=== PATIENT | male | born 1985 | race Caucasian/White ===

== ENCOUNTER 2021-10-05 05:30 | Day surgery (SDC) | payer MEDICAID ==
[2021-09-24 14:35] LABS: BASOPHILS % (AUTO) 0.5 % (0-1); EOSINOPHILS # (AUTO) 0.1 X10'3 (0-0.9); EOSINOPHILS % (AUTO) 0.7 % (0-6); LYMPHOCYTES # (AUTO) 1.5 X10'3 (1.1-4.8); LYMPHOCYTES % (AUTO) 19.9 % (21-51); MEAN CORPUSCULAR HEMOGLOBIN 30.5 PG (27.0-31.0); MEAN CORPUSCULAR HGB CONC 34.6 g/dL (33.0-36.5); MEAN CORPUSCULAR VOLUME 88.2 FL (78-98); MEAN PLATELET VOLUME 6.7 FL (7.4-10.4); MONOCYTES # (AUTO) 0.6 X10'3 (0-0.9); NEUTROPHILS # (AUTO) 5.2 X10'3 (1.8-7.7); NEUTROPHILS % (AUTO) 70.9 % (42-75); PRE OP HEMATOCRIT 42.4 % (42.0-52.0); PRE OP HEMOGLOBIN 14.7 g/dL (14.0-17.9); PRE OP PLATELET COUNT 265 X10'3 (140-440); RED CELL DISTRIBUTION WIDTH 13.3 % (11.5-14.5)
[2021-09-24 14:49] LABS: ALBUMIN 4.3 G/DL (3.4-5.0); ALBUMIN/GLOBULIN RATIO 1.2 (1.1-1.5); ALKALINE PHOSPHATASE 42 IU/L (46-116); BLOOD UREA NITROGEN 15 MG/DL (7-18); BUN/CREATININE RATIO 15.8 (5.4-32.0); CALCIUM 8.9 MG/DL (8.5-10.1); CHLORIDE 104 MMOL/L (99-107); CREATININE 0.95 MG/DL (0.60-1.10); PRE OP ALT 52 U/L (30-65); PRE OP ANION GAP 9 (8-16); PRE OP AST 22 U/L (10-37); PRE OP BILIRUB, TOTAL 0.4 MG/DL (0.0-1.0); PRE OP GLUCOSE 79 MG/DL (70-104); PRE OP SODIUM 142 MMOL/L (135-145); TOTAL PROTEIN 7.9 G/DL (6.4-8.2); eGFR 90 ML/MIN
[2021-10-05] VITALS (15 sets, daily range): BP systolic 101–124; BP diastolic 56–76
[~2021-10-05] VITALS: Ht 177.8 cm; Wt 109.8 kg
[~2021-10-05 05:30] MED LIST: MELO-100 PO; famotidine 20mg tablet PO ONE; ringers solution, lacted 1,000 ML IV SCH
--- NOTE | 2021-10-05 07:15 | NUR ---
LEFT LEG SLIGHTLY SWOLLEN, PEDAL PULSES ARE PALPABLE BILATERALLY, PT AMBULATES WITHOUT DIFFICULTY TO THE BATHROOM PT COMPLAINS OF PAIN WITH AMBULATION IN THE LEFT THIGH AREA
[2021-10-05] MEDS ORDERED: HYDROmorphone/PF 0.2 MG/ML SYRINGE IV PRN ×2 (07:30)
[2021-10-05] MEDS ORDERED: ringers solution, lacted 1,000 ML IV SCH (07:30)
[2021-10-05] MEDS ORDERED: meperidine/PF 25mg/ml syringe IV PRN ×2 (07:30)
[2021-10-05] MEDS ORDERED: proCHLORperazine 10 MG/2 ml inj IV PRN (07:30)
[2021-10-05] MEDS ORDERED: ketorolac trometh. 30mg/ml inj. IV ONE (07:30)
[2021-10-05] MEDS ORDERED: acetaminophen 1,000mg/100ml IV 100 ML IV PRN (07:30)
[2021-10-05] MEDS ORDERED: ondansetron/PF 4mg/2ml inj IV PRN (07:30)
--- NOTE | 2021-10-05 07:30 | NUR ---
PT ASSISTED UP TO THE BATHROOM, STEADY GAIT, REMAINS AT BEDSIDE
[2021-10-05] MEDS ORDERED: aprepitant 40mg capsule PO ONE (07:38)
[2021-10-05] MEDS ORDERED: dexamethasone sod phosphate 10mg/ml inj ONE (08:17)
[2021-10-05] MEDS ORDERED: sevoflurane 250ml liquid IH ONE (08:17)
[2021-10-05] MEDS ORDERED: fentaNYL /PF 50mcg/ml 5ml ampule ONE (08:22)
[2021-10-05] MEDS ORDERED: midazolam 1 mg/ML 2ml injection ONE (08:22)
[2021-10-05] MEDS ORDERED: propofol inj 20 ML IV ONE (08:25)
[2021-10-05] MEDS ORDERED: LIDOcaine 2% (20mg/ml) 5ml vial ONE (08:25)
[2021-10-05] MEDS ORDERED: ondansetron/PF 4mg/2ml inj ONE (08:42)
[2021-10-05] MEDS ORDERED: ceFAZolin 1000mg inj ONE ×2 (08:57)
[2021-10-05] MEDS ORDERED: BUPIVAcaine/PF 2.5 mg/ml (0.25%) 30ml vial ONE (09:22)
[2021-10-05] MEDS: BUPIVAcaine/PF 2.5 mg/ml (0.25%) 30ml vial ONE ×2 (09:40→09:41)
[2021-10-05] MEDS ORDERED: HYDROcodone/acetaminophen 10/325mg tab PO PRN (09:50)
--- NOTE | 2021-10-05 09:52 | NUR ---
Received from OR via [facility], accompanied by Anesthesiologist ZACARIAS and OR NURSE. report given by Anesthesiolgist. PT DROWSY BUT REPSONDS TO VERBAL COMMANDS. 20G IN RT HAND. 02 MASK AT 8 LPM. LEFT KNEE ISLAND DRESSING WITH LORENA WRAP. DORSALIS PEDIS PULSES WNL. VSS PT WITH SHIVERS; 25 MG OF DEMEROL GIVEN PER DR. ADAMES. Addendum: 10/05/21 at 1018 by Monica Lao RN Amended: Links added.
[2021-10-05] MEDS ORDERED: HYDROcodone/acetaminophen 5mg/325mg tablet PO ONE (12:05)
--- NOTE | 2021-10-05 12:22 | NUR ---
ALL DISCHARGE CRITERIA HAS BEEN MET. VSS, PAIN AT A TOLERABLE LEVEL, VOIDING AND ABLE TO SAFELY AMBULATE AND TRANSFER SELF. IV TAKEN OUT WITHOUT ANY COMPLICATIONS. ALL DISCHARGE INSTRUCTIONS COVERED WITH PATIENT AND ALL QUESTIONS ANSWERED. PATIENT TAKEN OUT VIA WHEELCHAIR TO PERSONAL VEHICLE WHERE FAMILY/FRIEND DROVE PATIENT HOME. Addendum: 10/05/21 at 1241 by Monica Lao RN Amended: Links added.
== END 2021-10-05 12:22 | disposition home or self-care (01) ==
LOC: PAS 05:30
PROVIDERS: ATTEND Orthopaedic Surgery
DX: D48.0 Neoplasm of uncertain behavior of bone and articular cartilage (principal); D16.22 Benign neoplasm of long bones of left lower limb; Z98.890 Other specified postprocedural states; Z79.899 Other long term (current) drug therapy; G89.29 Other chronic pain; Z88.6 Allergy status to analgesic agent
CPT/HCPCS: 27360; 36415; 80053; 82948; 85025; 87811; J0131; J0690; J1100; J1170; J2175; J2250; J2405; J2704; J3010; J3490; J7030; J7120; J8501; Z7506; Z7508; Z7512; A4215; A4618; A6449; A7000

== ENCOUNTER 2022-02-15 05:44 | Day surgery (SDC) | payer MEDICAID ==
[2022-02-11 10:00] LABS: BASOPHILS % (AUTO) 0.6 % (0-1); EOSINOPHILS # (AUTO) 0.1 X10'3 (0-0.9); EOSINOPHILS % (AUTO) 1.7 % (0-6); LYMPHOCYTES # (AUTO) 1.7 X10'3 (1.1-4.8); LYMPHOCYTES % (AUTO) 29.3 % (21-51); MEAN CORPUSCULAR HEMOGLOBIN 30.5 PG (27.0-31.0); MEAN CORPUSCULAR VOLUME 89.5 FL (78-98); MEAN PLATELET VOLUME 6.4 FL (7.4-10.4); MONOCYTES # (AUTO) 0.5 X10'3 (0-0.9); MONOCYTES % (AUTO) 8.4 % (2-12); NEUTROPHILS # (AUTO) 3.4 X10'3 (1.8-7.7); PRE OP HEMATOCRIT 42.3 % (42.0-52.0); PRE OP HEMOGLOBIN 14.4 g/dL (14.0-17.9); PRE OP PLATELET COUNT 265 X10'3 (140-440); RED BLOOD COUNT 4.72 X10'6 (4.70-6.10); RED CELL DISTRIBUTION WIDTH 12.7 % (11.5-14.5)
[2022-02-11 10:06] LABS: ALBUMIN 4.1 G/DL (3.4-5.0); ALBUMIN/GLOBULIN RATIO 1.2 (1.1-1.5); ALKALINE PHOSPHATASE 53 IU/L (46-116); BLOOD UREA NITROGEN 19 MG/DL (7-18); BUN/CREATININE RATIO 21.3 (5.4-32.0); CALCIUM 8.9 MG/DL (8.5-10.1); CHLORIDE 103 MMOL/L (99-107); CREATININE 0.89 MG/DL (0.60-1.10); PRE OP ALT 58 U/L (30-65); PRE OP ANION GAP 5 (8-16); PRE OP AST 28 U/L (10-37); PRE OP BILIRUB, TOTAL 0.4 MG/DL (0.0-1.0); PRE OP GLUCOSE 93 MG/DL (70-104); PRE OP POTASSIUM 4.7 MMOL/L (3.4-5.1); PRE OP SODIUM 138 MMOL/L (135-145); TOTAL CARBON DIOXIDE 29.7 MMOL/L (24-32); TOTAL PROTEIN 7.4 G/DL (6.4-8.2); eGFR > 90 ML/MIN
[~2022-02-15] VITALS: Ht 177.8 cm; Wt 110.0 kg
[~2022-02-15 05:44] MED LIST changes: +ACET-75 PO; +HYDR-3964 PO; +IBUP-1985 PO; -MELO-100 PO; +ceFAZolin inj. 2,000 MG in dextrose 5%-water 100 ML IV ONE
[2022-02-15] MEDS ORDERED: BUPIVAcaine 0.5% inj/PF 0 ML ONE (06:14)
[2022-02-15] MEDS ORDERED: ketorolac trometh. 30mg/ml inj. ONE (06:14)
[2022-02-15] MEDS ORDERED: BUPIVAcaine/PF 5 mg/ml 10ml ONE (06:15)
[2022-02-15] MEDS ORDERED: BUPIVAcaine 0.5% inj/PF 30 ML ONE (06:18)
[2022-02-15] MEDS ORDERED: LIDOcaine 1%/PF 5ML 10 MG/ML VIAL ONE (06:18)
[2022-02-15] MEDS ORDERED: LIDOcaine 1% 30ml preserv. free vial ONE (06:18)
[2022-02-15 06:19] VITALS: BP 125/69
[2022-02-15] MEDS ORDERED: MIDAZolam 1mg/ml 10ml vial ONE (07:15)
[2022-02-15] MEDS ORDERED: FENTANYL CITRATE/PF 50 MCG/1 ML VIAL ONE (07:16)
[2022-02-15] MEDS ORDERED: epiNEPHrine 1 mg/ml inj ONE (07:18)
[2022-02-15] MEDS ORDERED: propofol inj 20 ML IV ONE (07:22)
[2022-02-15] MEDS ORDERED: ringers solution, lacted 1,000 ML IV SCH (07:25)
[2022-02-15] MEDS ORDERED: fentaNYL/PF 50MCG/1 ML 2ML syringe IV PRN ×2 (07:25)
[2022-02-15] MEDS ORDERED: ondansetron/PF 4mg/2ml inj IV PRN (07:25)
[2022-02-15] MEDS ORDERED: hydrALAZINE 20mg/ml inj. IV PRN (07:25)
[2022-02-15] MEDS ORDERED: meperidine/PF 25mg/ml syringe IV PRN ×2 (07:25)
[2022-02-15] MEDS ORDERED: labetalol 20mg/4ml (5mg/ml) syringe IV PRN (07:25)
[2022-02-15] MEDS ORDERED: acetaminophen 1,000mg/100ml IV 100 ML IV ONE (07:38)
[2022-02-15 08:16] VITALS: BP 104/50
--- NOTE | 2022-02-15 08:16 | NUR ---
Received from OR via [facility], accompanied by Anesthesiologist and report given by WALDO Anesthesiologist. PATIENT AWAKE AND ALERT, DENIES PAIN, V/S WNL, 20G TO RIGHT FOREARM, drsg to LEFT KNEE C/D/I. Addendum: 02/15/22 at 0860 by Thuan Escalante RN Amended: Links added.
[2022-02-15 08:20] VITALS: BP 98/52
[2022-02-15 08:30] VITALS: BP 96/59
[2022-02-15] MEDS ORDERED: HYDROcodone/acetaminophen 10/325mg tab PO PRN (08:30)
[2022-02-15 08:40] VITALS: BP 95/59
[2022-02-15 08:50] VITALS: BP 114/56
--- NOTE | 2022-02-15 08:56 | NUR ---
ALL DISCHARGE CRITERIA HAS BEEN MET. VSS, PAIN AT A TOLERABLE LEVEL, VOIDING AND ABLE TO SAFELY AMBULATE AND TRANSFER SELF. IV TAKEN OUT WITHOUT ANY COMPLICATIONS. ALL DISCHARGE INSTRUCTIONS COVERED WITH PATIENT AND ALL QUESTIONS ANSWERED. PATIENT TAKEN OUT VIA WHEELCHAIR WITH ALL BELONGINGS TO PERSONAL VEHICLE WHERE FAMILY/FRIEND DROVE PATIENT HOME. Addendum: 02/15/22 at 0922 by Thuan Escalante RN Amended: Links added.
== END 2022-02-15 08:56 | disposition home or self-care (01) ==
LOC: PAS 05:44
PROVIDERS: ATTEND Orthopaedic Surgery
DX: S83.272A Complex tear of lateral meniscus, current injury, left knee, initial encounter (principal); M17.12 Unilateral primary osteoarthritis, left knee; F12.90 Cannabis use, unspecified, uncomplicated; G89.29 Other chronic pain; G89.18 Other acute postprocedural pain; Z88.5 Allergy status to narcotic agent; Z98.890 Other specified postprocedural states; Z79.899 Other long term (current) drug therapy; X58.XXXA Exposure to other specified factors, initial encounter; Y93.89 Activity, other specified; Y92.89 Other specified places as the place of occurrence of the external cause; Y99.8 Other external cause status
CPT/HCPCS: 29881; 36415; 64450; 80053; 82948; 85025; J0131; J0171; J0690; J1885; J2250; J2704; J3010; J3490; J7060; J7120; S0020; Z7506; Z7512; A4215; A6449; A7000